=== PATIENT | female | born 1970 | race Caucasian/White ===

== ENCOUNTER → 2024-10-04 | Day surgery (SDC) | payer MEDICAID ==
[~2024-10-04] VITALS: Ht 152.4 cm; Wt 65.3 kg
[~2024-10-04] MED LIST: ALBUTEROL 6.7GM HFA INHALER ONE; BUPIVACAINE HCL/PF 0.5% (5MG/ML) 10ML ONE; CLAR10 PO; DEXAMETHASONE 4MG/ML 1ML VIAL ONE; FENTANYL CITRATE/PF 50MCG/ML 2ML VIAL ONE; LIDOCAINE HCL/PF 1% 10 MG/ML 5ML VIAL ONE; OMEP20CA14 PO; PROPOFOL 200MG/20ML VIAL IV ONE; ROCURONIUM BROMIDE 10MG/ML VIAL 5ML IV ONE; SKIN ADHESIVE 0.7 GM EA TOP ONE; SUCCINYLCHOLINE CHLORIDE 200MG/10ML IV ONE; SUGAMMADEX SODIUM 200MG/2ML VIAL IV ONE
[2024-10-04 06:06] LABS: UCG SCREEN NEGATIVE
[2024-10-04] MEDS: SODIUM CHLORIDE 0.9% 1,000 ML IV SCH (06:53)
[2024-10-04 09:53] VITALS: BP 125/68; PULSE 97; RESP 15
[2024-10-04] MEDS: ACETAMINOPHEN WITH CODEINE 300/30MG TABLET PO NR (09:53)
== END | disposition home or self-care (01) ==
LOC: OR 05:41
PROVIDERS: ATTEND Surgery
DX: K80.10 Calculus of gallbladder with chronic cholecystitis without obstruction (principal); Z79.899 Other long term (current) drug therapy; Z98.890 Other specified postprocedural states; Z88.8 Allergy status to other drugs, medicaments and biological substances
CPT/HCPCS: 47562; 81025; 82962; 88304; J3010; J3490 ×3; J1100; J2704; J0330; J7030